=== PATIENT | female | born 1995 | race Two or more races ===

== ENCOUNTER 2024-03-25 13:45 | Emergency (ER) | payer MEDICAID, SELFPAY ==
[2024-03-25 15:20] VITALS: BP 141/87; PULSE 97; RESP 18; TEMP 37.1; O2SAT 96; BMI 36.3
--- NOTE | 2024-03-25 15:38 | XR_ITS ---
Examination: Complete OB ultrasound greater than 14 weeks Date and time of exam: March 25, 2024 1557 hrs. Indications: Pelvic pressure vaginal bleeding yesterday Findings: Viable intrauterine single fetus with single amniotic sac presentation transverse head maternal right Cardiac motion 166 BPM Placenta anterior grade 2 Umbilical cord insertion seen Amniotic fluid largest pocket 5.38 cm Cervix ovaries obscured by bowel gas. Composite estimated gestational age based on BPD, head circumference, abdominal circumference, femur length is 16 weeks 4 days Estimated weight 161.3 g. Survey of intracranial anatomy, spinal anatomy, abdominal anatomy, four-chamber heart performed with no abnormalities identified. Impression: Viable intrauterine gestation transverse presentation No placental abruption or subchorionic hemorrhage.
--- NOTE | 2024-03-25 15:38 | PD.EDRME ---
Rapid Medical Screening Exam RME Arrival date/time: 03/25/24 13:45 This is a 28-year-old female that comes in with complaints of vaginal spotting that started yesterday. Patient states that today she has not had that much vaginal spotting but she is having lower pelvic cramping. Patient reports that she is approximately 16 weeks . Patient is a 2 para 0. Patient's last menstrual period was November 29, 2023. Patient denies nausea, vomiting, diarrhea, fever. Patient denies any past medical history. I have greeted and performed a focused initial assessment of this patient. Initial appropriate labs ordered at this time. A comprehensive ED assessment and evaluation of the patient and analysis of all test and completion of medical decision making process will be conducted by additional ED provider. Chief Complaint: Vaginal Bleeding Time Seen by Provider: 03/25/24 15:24 Vital signs: Vital Signs Temperature 98.7 F 03/25/24 15:20 Pulse Rate 97 03/25/24 15:20 Respiratory Rate 18 03/25/24 15:20 Blood Pressure 141/87 H 03/25/24 15:20 Pulse Oximetry (%) 96 03/25/24 15:20 Oxygen Delivery Method Room Air 03/25/24 15:20
[2024-03-25 16:17] LABS: Collection Type, Urine Voided
[2024-03-25 16:26] LABS: Bilirubin,Urine Negative (Negative); Blood,Urine Negative (Negative); Clarity,Urine Clear (Clear/Hazy); Color,Urine Yellow (Lt Yel-Yel); Culture Indicated,Urine Not Indicated; Glucose, Urine Negative (Negative); Ketones,Urine Negative (Negative); Leukocyte Esterase,Urine Positive (Negative); Nitrite,Urine Negative (Negative); Protein,Urine Trace (Neg - Trace); RBC,Urine 1 /hpf (0-3); Specific Gravity,Urine 1.026 (1.001-1.035); Squamous Epithelial Cell,Urine 8 /hpf (0-5); Urobilinogen,Urine Negative mg/dL (0.0-1.0); WBC,Urine 9 /hpf (0-5)
[2024-03-25 17:08] LABS: Basophils % (Auto) 0 % (0-2.5); Eosinophils # (Auto) 0.1 Thou/mm3 (0.0-0.5); Eosinophils % (Auto) 0 % (0-10); Hematocrit 36.1 % (36.0-46.0); Hemoglobin 12.3 g/dL (12.0-16.0); Immature Granulocytes % (Auto) 0 % (0-0); Immature Granulocytes Auto 0.03 Thou/mm3 (0.00-0.00); Lymphocytes % (Auto) 18 % (10-50); Mean Corpuscular HGB Conc 34.1 g/dl (31.0-37.0); Mean Corpuscular Hemoglobin 30.2 pg (25.0-35.0); Mean Corpuscular Volume 89 fL (80-100); Monocytes # (Auto) 0.6 Thou/mm3 (0.0-0.8); Monocytes % (Auto) 5 % (0-12); Neutrophils # (Auto) 8.8 Thou/mm3 (1.8-7.7); Neutrophils % (Auto) 77 % (37-80); Nucleated Red Blood Cell % 0 /100 WBC (0); Platelet Count 261 Thou/mm3 (140-440); RDW Standard Deviation 41.9 fL (36.4-46.3); Red Blood Count 4.07 Miln/mm3 (4.00-5.20); White Blood Count 11.4 Thou/mm3 (3.6-11.0)
[2024-03-25 17:22] LABS: Alanine Aminotransferase 25 U/L (10-49); Albumin, Serum 4.5 gm/dL (3.5-5.0); Albumin/Globulin Ratio 1.5 (1.2-2.2); Alkaline Phosphatase 55 U/L (46-116); Anion Gap 9 (7-16); Aspartate Amino Transferase 14 U/L (0-34); BUN/Creatinine Ratio 13 Ratio (12-20); Bilirubin,Total 0.3 mg/dL (0.3-1.2); Blood Urea Nitrogen 9 mg/dL (9-23); Calcium 9.4 mg/dL (8.3-10.6); Calcium (Corrected) 9.4 mg/dL (8.5-10.1); Carbon Dioxide 23.3 mMol/L (20.0-31.0); Chloride 103 mMol/L (98-107); Creatinine (Component) 0.7 mg/dL (0.6-1.3); Estimated Creatinine Clearance 137.1 mL/min (>60); Glucose 93 mg/dL (74-106); Lipase 34 U/L (12-53); Osmolality,Calculated 268 (275-295); Potassium 3.7 mMol/L (3.4-5.1); Sodium 135 mMol/L (136-145); Total Protein 7.5 gm/dL (5.7-8.2); eGFR > 60 See Note
[2024-03-25 17:53] LABS: Beta HCG,Quantitative 30820 mIU/mL (<5.0)
[2024-03-25 18:04] VITALS: BP 132/67; PULSE 102; RESP 18; TEMP 37.1; O2SAT 100
--- NOTE | 2024-03-25 18:16 | EDNOTE_ITS ---
ED General RME/HPI General Chief complaint: Vaginal Bleeding Stated complaint: VAGINAL PRESSURE/SPOTTING 16 WEEKS Time Seen by Provider: 03/25/24 15:24 Arrival date/time: 03/25/24 13:45 CC: Small amount of vaginal spotting x 1, patient is a G2, P2 at estimated 16 weeks spotting occurred approximately 24 hours ago. Patient denies any lower back pain but is complaining of some mild pelvic cramping. Patient denies vaginal discharge vaginal bleeding. Also complaining of a mild headache. RME / HPI RME / HPI narrative: 03/25/24 13:45 This is a 28-year-old female that comes in with complaints of vaginal spotting that started yesterday. Patient states that today she has not had that much vaginal spotting but she is having lower pelvic cramping. Patient reports that she is approximately 16 weeks . Patient is a 2 para 0. Patient's last menstrual period was November 29, 2023. Patient denies nausea, vomiting, diarrhea, fever. Patient denies any past medical history. I have greeted and performed a focused initial assessment of this patient. Initial appropriate labs ordered at this time. A comprehensive ED assessment and evaluation of the patient and analysis of all test and completion of medical decision making process will be conducted by additional ED provider. Related Data Allergies Allergy/AdvReac Type Severity Reaction Status Date / Time No Known Allergies Allergy Verified 03/25/24 13:53 Review of Systems Review of Systems Narrative Review of Systems: GEN: No fever, no chills, no weight loss EYES: No discharge, no visual changes, no pain HEENT: No ear pain, no congestion, no sore throat PULM: No shortness of breath, no cough, no congestion CV: No chest pain, no dyspnea on exertion, no palpitations GI: No nausea, no vomiting, no diarrhea, no pain, no constipation : No frequency, no urgency, no dysuria MUSC/SKEL: No joint pain, no back pain SKIN: No rash PSYCH: No hallucinations, no depression HEME/LYMPH: No easy bleeding or bruising tendencies NEURO: No weakness, no headache Past Medical History Social History SMOKING STATUS: Never smoker ED Exam Narrative Physical exam: [General: Obese not in cot no acute distress Head normocephalic HEENT: Within acceptable limits Neck is supple nontender Chest equal chest rise nontender to palpation Respiratory: Clear to auscultation no wheezes crackles or rubs CV: Rate rhythm is regular no murmurs rubs or clicks Abdomen is distended secondary to body habitus soft nontender no masses positive bowel sounds all 4 quadrants Back: No CVA tenderness no spinous process tenderness from cervical spine thoracic and lumbar spine Skin: Intact no petechiae rash induration ulceration or crepitus Extremities: Moving all extremity against resistance cap refill less than 2 seconds neurosensory intact Neuro: Awake alert oriented x3 Glascow coma 15 no focal deficits] Course Quality Measures none Orders Category Date Time Status US OB >= 14 weeks Fetus Stat Exams 03/25/24 15:38 Completed ABO/RH Type - Stat Lab 03/25/24 16:33 Completed Beta HCG,Quantitative Stat Lab 03/25/24 16:33 Completed CBC Stat Lab 03/25/24 16:33 Completed Comprehensive Metabolic Panel Stat Lab 03/25/24 16:33 Completed Lipase Stat Lab 03/25/24 16:33 Completed Urinalysis, C/S if Indicated Stat Lab 03/25/24 15:34 Completed Vital Signs Vital signs: Vital Signs Temperature 98.7 F 03/25/24 15:20 Pulse Rate 97 03/25/24 15:20 Respiratory Rate 18 03/25/24 15:20 Blood Pressure 141/87 H 03/25/24 15:20 Pulse Oximetry (%) 96 03/25/24 15:20 Oxygen Delivery Method Room Air 03/25/24 15:20 MDM Patient data External records reviewed:: [facility] previous records Clinical information provided by:: patient Social determinants that could affect healthcare access:: none Patient has the following chronic illnesses:: None How is presenting disease/condition affected by chronic disease/condition?: u neffected by Evaluation data The following diagnostics were reviewed and interpreted by me:: lab results and radiology exam(s) Lab and/or radiology exams considered but not ordered:: CBC shows no acute leukocytosis anemia thrombocytopenia CMP shows no acute electrolyte imbalances renal impairment transaminitis or T. bili elevation Urine is negative for UTI Ultrasound shows a 16-week 3-day with transverse lie good heart tones Quantitative hCG at 30,820 Interpretation Summary: Vaginal spotting with Medications Medications considered but not ordered:: None Medication administrations:: None Consultations Consultation(s) initiated? (list below): No Diagnosis Differential Diagnosis ED Complaint MDM: Ectopic threatened miscarriage second trimester vaginal bleeding Most likely diagnosis given after review of the tests above:: Second trimester vaginal bleeding Admission Indicated Admission indicated?: not indicated Explain why admission is indicated or not indicated:: Stable for outpatient follow-up Admission Request Was there a request for admission?: No Disposition Plan Disposition Plan: Discharge Discharge Attestation Discharge Attestation: The patient and all family members were given an opportunity to ask questions and understood the discharge instructions. Discharge instructions specifically effects, indications for sooner follow up or return to the emergency department, and the expected course of current diagnosis. Patient condition: Stable Medical Decision Making Differential Diagnosis Differential Diagnosis: Ectopic threatened miscarriage second trimester vaginal bleeding Lab Data 03/25/24 16:33 03/25/24 16:33 Labs: Lab Results 03/25/24 03/25/24 Range/Units 15:34 16:33 WBC 11.4 H (3.6-11.0) Thou/mm3 RBC 4.07 (4.00-5.20) Miln/mm3 Hgb 12.3 (12.0-16.0) g/dL Hct 36.1 (36.0-46.0) % MCV 89 (80-100) fL MCH 30.2 (25.0-35.0) pg MCHC 34.1 (31.0-37.0) g/dl RDW Std Deviation 41.9 (36.4-46.3) fL Plt Count 261 (140-440) Thou/mm3 Neut % (Auto) 77 (37-80) % Lymph % (Auto) 18 (10-50) % Jackson % (Auto) 5 (0-12) % Eos % (Auto) 0 (0-10) % Baso % (Auto) 0 (0-2.5) % Neut # (Auto) 8.8 H (1.8-7.7) Thou/mm3 Lymph # (Auto) 2.0 (1.0-4.8) Thou/mm3 Jackson # (Auto) 0.6 (0.0-0.8) Thou/mm3 Eos # (Auto) 0.1 (0.0-0.5) Thou/mm3 Baso # (Auto) 0.0 (0.0-0.2) Thou/mm3 Immature Gran # (Auto) 0.03 H (0.00-0.00) Thou/mm3 Absolute Nucleated RBC 0.00 (0.00-0.00) Thou/mm3 Immature Gran % 0 (0-0) % Nucleated RBC % 0 (0) /100 WBC Sodium 135 L (136-145) mMol/L Potassium 3.7 (3.4-5.1) mMol/L Chloride 103 (98-107) mMol/L Carbon Dioxide 23.3 (20.0-31.0) mMol/L Anion Gap 9 (7-16) BUN 9 (9-23) mg/dL Creatinine 0.7 (0.6-1.3) mg/dL Estim Creat Clear Calc 137.1 (>60) mL/min eGFR > 60 (60 - ) See Note BUN/Creatinine Ratio 13 (12-20) Ratio Glucose 93 (74-106) mg/dL Calculated Osmolality 268 L (275-295) Calcium 9.4 (8.3-10.6) mg/dL Corrected Calcium 9.4 (8.5-10.1) mg/dL Total Bilirubin 0.3 (0.3-1.2) mg/dL AST 14 (0-34) U/L ALT 25 (10-49) U/L Alkaline Phosphatase 55 (46-116) U/L Total Protein 7.5 (5.7-8.2) gm/dL Albumin 4.5 (3.5-5.0) gm/dL Globulin 3.0 (2.3-3.5) gm/dL Albumin/Globulin Ratio 1.5 (1.2-2.2) Lipase 34 (12-53) U/L Beta HCG, Quant 14562 (<5.0) mIU/mL Ur Collection Type Voided Urine Color Yellow (Lt Yel-Yel) Urine Clarity Clear (Clear/Hazy) Urine pH 6.0 (5.0-7.0) Ur Specific [place] 1.026 (1.001-1.035) Urine Protein Trace (Neg - Trace) Urine Glucose (UA) Negative (Negative) Urine Ketones Negative (Negative) Urine Blood Negative (Negative) Urine Nitrite Negative (Negative) Urine Bilirubin Negative (Negative) Urine Urobilinogen (Auto) Negative (0.0-1.0) mg/dL Ur Leukocyte Esterase Positive (Negative) Urine RBC 1 (0-3) /hpf Urine WBC 9 H (0-5) /hpf Ur Squamous Epith Cells 8 H (0-5) /hpf Urine Bacteria None (None) Ur Culture Indicated? Not Indicated Blood Type A Positive Comment Comment Blood Bank Wristband ID Yes Discharge Plan Plan Patient Disposition: HOME (Self Care) Patient condition on transfer: Stable Prescriptions/Referrals Referrals: Demetrio Hopson MD [Primary Care Provider] - In 1 week Problem List Clinical Impression: Vaginal bleeding during Patient/Caregiver Discharge Instructions Other Activity Instructions:: Follow-up with your MANAGER ORDER as stated on April 11, if there is a worsening heavy bleeding with large clots return the emergency room for reevaluation. Education Materials: Bleeding During Early Print Language: Polish Stand Alone Forms: Justina Award Info., Patient Portal Info Letter, Work/School Release PA/[employer] Supervising Physician PA/[employer] Supervising Physician: Jose Calvillo ENP
== END 2024-03-25 18:25 | disposition home or self-care (01) ==
PROVIDERS: Nurse Practitioner Family; Emergency Provider Emergency Medicine; PCP Family Medicine
DX: O20.9 Hemorrhage in early pregnancy, unspecified (principal); Z3A.16 16 weeks gestation of pregnancy
CPT/HCPCS: 36415; 76805; 80053; 81001; 83690; 84702; 85025; 86900; 86901; 99284

== ENCOUNTER 2024-08-04 08:30 | Outpatient (CLI) | payer MEDICAID, SELFPAY ==
[2024-08-04 08:38] VITALS: BP 137/88; PULSE 91; RESP 18; RESP 99; TEMP 36.8; O2SAT 99; BMI 39.9
[2024-08-04 08:58] VITALS: BP 129/68; PULSE 87
[2024-08-04 09:27] LABS: Collection Type, Urine Clean Catch
[2024-08-04 09:29] VITALS: BP 143/67; PULSE 89
[2024-08-04 09:31] LABS: Basophils % (Auto) 0 % (0-2.5); Eosinophils # (Auto) 0.1 Thou/mm3 (0.0-0.5); Eosinophils % (Auto) 0 % (0-10); Hematocrit 36.2 % (36.0-46.0); Hemoglobin 12.4 g/dL (12.0-16.0); Immature Granulocytes % (Auto) 1 % (0-0); Immature Granulocytes Auto 0.07 Thou/mm3 (0.00-0.00); Lymphocytes # (Auto) 2.3 Thou/mm3 (1.0-4.8); Lymphocytes % (Auto) 18 % (10-50); Mean Corpuscular HGB Conc 34.3 g/dl (31.0-37.0); Mean Corpuscular Volume 85 fL (80-100); Monocytes # (Auto) 0.6 Thou/mm3 (0.0-0.8); Monocytes % (Auto) 5 % (0-12); Neutrophils # (Auto) 9.3 Thou/mm3 (1.8-7.7); Neutrophils % (Auto) 75 % (37-80); Nucleated Red Blood Cell % 0 /100 WBC (0); Platelet Count 246 Thou/mm3 (140-440); Red Blood Count 4.27 Miln/mm3 (4.00-5.20); White Blood Count 12.3 Thou/mm3 (3.6-11.0)
[2024-08-04 09:39] VITALS: BP 144/71; PULSE 90
[2024-08-04 09:47] LABS: Alanine Aminotransferase 15 U/L (10-49); Albumin, Serum 3.9 gm/dL (3.5-5.0); Albumin/Globulin Ratio 1.3 (1.2-2.2); Alkaline Phosphatase 154 U/L (46-116); Anion Gap 11 (7-16); Aspartate Amino Transferase 15 U/L (0-34); BUN/Creatinine Ratio 14 Ratio (12-20); Bilirubin,Total 0.3 mg/dL (0.3-1.2); Blood Urea Nitrogen 10 mg/dL (9-23); Calcium 8.8 mg/dL (8.3-10.6); Calcium (Corrected) 8.9 mg/dL (8.5-10.1); Carbon Dioxide 22.3 mMol/L (20.0-31.0); Chloride 106 mMol/L (98-107); Creatinine (Component) 0.7 mg/dL (0.6-1.3); Estimated Creatinine Clearance 153.3 mL/min (>60); Glucose 103 mg/dL (74-106); LDH (Lactate Dehydrogenase) 158 U/L (120-246); Osmolality,Calculated 276 (275-295); Potassium 4.2 mMol/L (3.4-5.1); Sodium 139 mMol/L (136-145); Total Protein 6.9 gm/dL (5.7-8.2); Uric Acid 5.5 mg/dL (3.1-7.8); eGFR > 60 See Note
[2024-08-04 09:50] LABS: Bilirubin,Urine Negative (Negative); Blood,Urine Negative (Negative); Clarity,Urine Turbid (Clear/Hazy); Color,Urine Lt-Yellow (Lt Yel-Yel); Glucose, Urine Negative (Negative); Ketones,Urine Negative (Negative); Leukocyte Esterase,Urine Positive (Negative); Nitrite,Urine Negative (Negative); Protein,Urine Negative (Neg - Trace); RBC,Urine 1 /hpf (0-3); Specific Gravity,Urine 1.007 (1.001-1.035); Squamous Epithelial Cell,Urine 10 /hpf (0-5); Urobilinogen,Urine Negative mg/dL (0.0-1.0); WBC,Urine 13 /hpf (0-5)
[2024-08-04 09:57] VITALS: BP 133/77; PULSE 83
[2024-08-04 09:57] LABS: Fibrinogen 547 mg/dL (175-375); INR 0.9 (0.9-1.3); Partial Thromboplastin Time 24.8 Seconds (22.0-36.0); Prothrombin Time 9.7 Seconds (9.0-12.2)
--- NOTE | 2024-08-04 11:53 | PC.NURSE ---
Approx 1025 call made to Md Belle with SBAR Report. PT denies WYNN, Nausea/v, Visual distrubances or epigastric pain. Serial B/p readings read back to MD. Also all labs read back to MD. Per Md, give pt a 24 hour collection and return to triage for NST.
--- NOTE | 2024-08-04 11:54 | PC.NURSE ---
1040- pt discharged home with 24 hour collections supplies provided. Antepartum education and kick counts information answered. pt verbalized understanding of this. Will return tomorrow at 0900 with 24 hour collection. Home ambulatory in stable condition.
== END 2024-08-04 10:40 | disposition home or self-care (01) ==
LOC: S4S1 08:34 → S4SX 09:49
PROVIDERS: Referring Provider Student in an Organized Health Care Education/Training Program; Visit Provider Student in an Organized Health Care Education/Training Program
DX: Z34.83 Encounter for supervision of other normal pregnancy, third trimester (principal); Z36.89 Encounter for other specified antenatal screening; Z3A.35 35 weeks gestation of pregnancy
CPT/HCPCS: 36415; 59025; 80053; 81001; 83615; 84550; 85025; 85384; 85610; 85730

== ENCOUNTER 2024-08-05 09:47 | Outpatient (CLI) | payer MEDICAID, SELFPAY ==
[2024-08-05] VITALS (14 sets, daily range): BP systolic 128–145; BP diastolic 65–86; PULSE 78–96; RESP 18–99; TEMP 36.6; O2SAT 98–100; BMI 41.1
[2024-08-05 10:59] LABS: Creatinine,Urine 88 mg/dL (30-125); Patient Height,Urine 65 Inches; Patient Weight,Urine 247 Pounds; Protein Total, Urine 11 mg/dL (1-14)
[2024-08-05 11:23] LABS: Creatinine (Component) 0.6 mg/dL (0.6-1.3); Estimated Creatinine Clearance 175.7 mL/min (>60); eGFR > 60 See Note
[2024-08-05 11:34] LABS: Protein Total, 24 hr Urine 138 mg/24hr (<149); Protein Total, Urine Volume 1250 mL/24hr (600-1800)
[2024-08-05 11:35] LABS: Collection Time,Urine 24 Hours; Creatinine 24 Hour,Urine 1.1 gm/24hr (0.6-1.5); Total Volume,Urine 1250 mL (600-1800)
[2024-08-05 11:54] LABS: Creatinine Clearance Urine 102 mL/min (90-139); Serum Creatinine Result 0.6 mg/dL
== END 2024-08-05 12:15 | disposition home or self-care (01) ==
LOC: S4S1 09:48 → S4SX 09:49
PROVIDERS: Referring Provider Obstetrics & Gynecology; Visit Provider Obstetrics & Gynecology
DX: Z34.03 Encounter for supervision of normal first pregnancy, third trimester (principal); Z36.89 Encounter for other specified antenatal screening; Z3A.35 35 weeks gestation of pregnancy
CPT/HCPCS: 36415; 59025; 82565; 82575; 84156

== ENCOUNTER 2024-08-09 11:19 | Outpatient (RCR) | payer MEDICAID, SELFPAY ==
--- NOTE | 2024-07-12 15:12 | XR_ITS ---
Examination: Biophysical profile, ultrasound Date and time of exam: July 12, 2024 1529 hrs. Indications: Diagnosis maternal obesity Technique: Multiple transabdominal sonographic images of the pelvis abdomen obtained. Attention is directed to the breathing movement, gross body movement, amniotic fluid volume and tone. Findings: Amniotic fluid index 10.3 cm Total biophysical profile is 8 of 8. breathing movement is 2. Gross body movement is 2. tone is 2. Qualitative amniotic fluid volume is 2 Impression: Biophysical profile is 8 of 8.
[2024-07-12 15:53] VITALS: BP 130/72; PULSE 93; RESP 16; TEMP 36.1
--- NOTE | 2024-07-16 15:39 | XR_ITS ---
Examination: Biophysical profile, ultrasound Date and time of exam: July 16, 2024 1542 hours INDICATIONS: Diagnosis maternal obesity Technique: Multiple transabdominal sonographic images of the pelvis abdomen obtained. Attention is directed to the breathing movement, gross body movement, amniotic fluid volume and tone. Findings: Amniotic fluid index 10.0 cm Total biophysical profile is 8 of 8. breathing movement is 2. Gross body movement is 2. tone is 2. Qualitative amniotic fluid volume is 2 Impression: Biophysical profile is 8 of 8.
[2024-07-16 16:18] VITALS: BP 122/67; PULSE 79; RESP 16; TEMP 36.3
--- NOTE | 2024-07-19 14:57 | XR_ITS ---
Examination: Biophysical profile, ultrasound Date and time of exam: July 19, 2024 1503 hours INDICATIONS: Diagnosis maternal obesity Technique: Multiple transabdominal sonographic images of the pelvis abdomen obtained. Attention is directed to the breathing movement, gross body movement, amniotic fluid volume and tone. Findings: Amniotic fluid index 6.5 cm Total biophysical profile is 8 of 8. breathing movement is 2. Gross body movement is 2. tone is 2. Qualitative amniotic fluid volume is 2 Impression: Biophysical profile is 8 of 8.
[2024-07-19 15:56] VITALS: BP 123/75; PULSE 76; RESP 16; TEMP 36.8
--- NOTE | 2024-07-23 10:14 | XR_ITS ---
Examination: Biophysical profile, ultrasound Date and time of exam: July 23, 2024 1032 hours INDICATIONS: Diagnosis maternal obesity Technique: Multiple transabdominal sonographic images of the pelvis abdomen obtained. Attention is directed to the breathing movement, gross body movement, amniotic fluid volume and tone. Findings: Amniotic fluid index 6.5 cm Total biophysical profile is 8 of 8. breathing movement is 2. Gross body movement is 2. tone is 2. Qualitative amniotic fluid volume is 2 Impression: Biophysical profile is 8 of 8.
[2024-07-23 11:38] VITALS: BP 135/67; PULSE 76; RESP 16; TEMP 36.7
--- NOTE | 2024-07-26 15:14 | XR_ITS ---
Examination: Biophysical profile, ultrasound Date and time of exam: July 26, 2024 1528 hrs. Indications: Diagnosis maternal obesity Technique: Multiple transabdominal sonographic images of the pelvis abdomen obtained. Attention is directed to the breathing movement, gross body movement, amniotic fluid volume and tone. Findings: Amniotic fluid index 6.4 cm Total biophysical profile is 8 of 8. breathing movement is 2. Gross body movement is 2. tone is 2. Qualitative amniotic fluid volume is 2 Impression: Biophysical profile is 8 of 8.
[2024-07-26 16:22] VITALS: BP 119/79; PULSE 79; RESP 20; TEMP 36.7
--- NOTE | 2024-07-30 15:13 | XR_ITS ---
Examination: Biophysical profile, ultrasound Date and time of exam: July 22, 2024 1520 hours INDICATIONS: Maternal obesity complicating Technique: Multiple transabdominal sonographic images of the pelvis abdomen obtained. Attention is directed to the breathing movement, gross body movement, amniotic fluid volume and tone. Findings: Amniotic fluid index 8.7 cm Total biophysical profile is 8 of 8. breathing movement is 2. Gross body movement is 2. tone is 2. Qualitative amniotic fluid volume is 2 Impression: Biophysical profile is 8 of 8.
[2024-07-30 16:15] VITALS: BP 123/69; PULSE 81; RESP 16; TEMP 36.8
--- NOTE | 2024-08-06 15:17 | XR_ITS ---
Examination: Biophysical profile, ultrasound Date and time of exam: August 06, 2024 1519 hours INDICATIONS: Maternal obesity complicating Technique: Multiple transabdominal sonographic images of the pelvis abdomen obtained. Attention is directed to the breathing movement, gross body movement, amniotic fluid volume and tone. Findings: Amniotic fluid index 11.1 cm Total biophysical profile is 8 of 8. breathing movement is 2. Gross body movement is 2. tone is 2. Qualitative amniotic fluid volume is 2 Impression: Biophysical profile is 8 of 8.
[2024-08-06 16:21] VITALS: BP 133/74; PULSE 83; RESP 16; TEMP 36.7
--- NOTE | 2024-08-09 11:25 | XR_ITS ---
Examination: Biophysical profile, ultrasound Date and time of exam: August 09, 2024 1143 hours INDICATIONS: Diagnosis obesity complicating Technique: Multiple transabdominal sonographic images of the pelvis abdomen obtained. Attention is directed to the breathing movement, gross body movement, amniotic fluid volume and tone. Findings: Amniotic fluid index 9.5 cm Total biophysical profile is 8 of 8. breathing movement is 2. Gross body movement is 2. tone is 2. Qualitative amniotic fluid volume is 2 Impression: Biophysical profile is 8 of 8.
[2024-08-09 12:01] VITALS: BP 127/71; PULSE 88; RESP 16; TEMP 36.7
== END 2024-08-09 23:59 | disposition home or self-care (01) ==
LOC: S4S1 11:19
PROVIDERS: Referring Provider Student in an Organized Health Care Education/Training Program; Visit Provider Student in an Organized Health Care Education/Training Program
DX: O99.213 Obesity complicating pregnancy, third trimester (principal); E66.9 Obesity, unspecified; Z3A.36 36 weeks gestation of pregnancy
CPT/HCPCS: 59025; 76819

== ENCOUNTER 2024-08-14 05:07 | Inpatient (IN) | payer MEDICAID, SELFPAY ==
[2024-08-04 08:45] VITALS: BP 137/88; PULSE 91; RESP 18; RESP 99; TEMP 36.8; BMI 39.9
[2024-08-14] VITALS (17 sets, daily range): BP systolic 0–145; BP diastolic 0–86; PULSE 85–118; RESP 12–20; TEMP 36.5–37.1; O2SAT 97–100; BMI 40.9; BMI 41.0
--- NOTE | 2024-08-14 05:16 | XR_ITS ---
Examination: age limited TECHNIQUE: Limited transabdominal sonographic images pelvis Examination and August 14, 2024 0551 hours INDICATIONS: Pre-op , unknown presentation. FINDINGS: presentation breech IMPRESSION: presentation breech
[2024-08-14] MEDS: RINGERS LACTATED 1000 ML 1,000 ML 100 ML IV (05:20)
[2024-08-14 06:05] LABS: Basophils # (Auto) 0.1 Thou/mm3 (0.0-0.2); Basophils % (Auto) 0 % (0-2.5); Eosinophils # (Auto) 0.1 Thou/mm3 (0.0-0.5); Eosinophils % (Auto) 1 % (0-10); Hematocrit 37.2 % (36.0-46.0); Hemoglobin 12.8 g/dL (12.0-16.0); Immature Granulocytes % (Auto) 0 % (0-0); Immature Granulocytes Auto 0.03 Thou/mm3 (0.00-0.00); Lymphocytes # (Auto) 3.1 Thou/mm3 (1.0-4.8); Lymphocytes % (Auto) 26 % (10-50); Mean Corpuscular HGB Conc 34.4 g/dl (31.0-37.0); Mean Corpuscular Hemoglobin 29.2 pg (25.0-35.0); Mean Corpuscular Volume 85 fL (80-100); Monocytes # (Auto) 0.7 Thou/mm3 (0.0-0.8); Monocytes % (Auto) 6 % (0-12); Neutrophils % (Auto) 67 % (37-80); Nucleated Red Blood Cell % 0 /100 WBC (0); Platelet Count 249 Thou/mm3 (140-440); RDW Standard Deviation 43.5 fL (36.4-46.3); Red Blood Count 4.39 Miln/mm3 (4.00-5.20)
[2024-08-14 06:40] LABS: Alanine Aminotransferase 16 U/L (10-49); Albumin, Serum 3.9 gm/dL (3.5-5.0); Albumin/Globulin Ratio 1.3 (1.2-2.2); Alkaline Phosphatase 166 U/L (46-116); Anion Gap 13 (7-16); Aspartate Amino Transferase 18 U/L (0-34); BUN/Creatinine Ratio 16 Ratio (12-20); Bilirubin,Total 0.3 mg/dL (0.3-1.2); Blood Urea Nitrogen 11 mg/dL (9-23); Calcium 8.6 mg/dL (8.3-10.6); Calcium (Corrected) 8.7 mg/dL (8.5-10.1); Carbon Dioxide 21.4 mMol/L (20.0-31.0); Chloride 105 mMol/L (98-107); Creatinine (Component) 0.7 mg/dL (0.6-1.3); Estimated Creatinine Clearance 150.4 mL/min (>60); Globulin 2.9 gm/dL (2.3-3.5); Glucose 100 mg/dL (74-106); Osmolality,Calculated 276 (275-295); Potassium 3.6 mMol/L (3.4-5.1); Sodium 139 mMol/L (136-145); Total Protein 6.8 gm/dL (5.7-8.2); Uric Acid 6.1 mg/dL (3.1-7.8); eGFR > 60 See Note
[2024-08-14 06:48] LABS: Syphilis Nonreactive (Nonreactive)
[2024-08-14] MEDS: ceFAZolin/D5W 2 GM IV 2 GM/100 ML BAG IV (07:15)
[2024-08-14] MEDS: METOCLOPRAMIDE INJ 5 MG/ML VIAL 2 ML 10 MG IVP (07:15)
[2024-08-14] MEDS: FAMOTIDINE INJ 10 MG/ML VIAL 2 ML 20 MG IV (07:15)
--- NOTE | 2024-08-14 07:44 | PD.LDHP ---
Documentation for date of: 08/14/24 OB Labor/Induct. HPI History of Present Illness : 2 Para: 0 Term pregnancies: 0 pregnancies: 0 Living children: 0 History of Abortions: Spontaneous and Elective: 0 History of Vaginal deliveries: 0 History of sections: No (0) History of : No (0) Date of last menstrual period: 09/29/23 AMAYA: 09/04/24 Gestational Age (weeks): 37 Gestational age based on last menstrual period: 47 History of present illness: 29-year-old 2 para 0 with previous spontaneous miscarriage is admitted for a primary low-transverse for persistent breech presentation and gestational hypertension at 37 weeks. Patient is dated by 12-week scan. Patient's has otherwise been uncomplicated however over the last few visits in the clinic patient has been having elevated blood pressures. Patient was sent to the triage for preeclampsia evaluation on 08/04 and 08/05 and was found to have elevated blood pressures preeclampsia labs has been within normal limits and patient has been asymptomatic for any severe preeclampsia symptoms. Patient was given the choice of version however patient absolutely declined as one of her family members had bad experience with the procedure History of Present Dating criteria: LMP confirmed by 1st trimester US Adequate Care: Yes Abnormal ultrasound findings: Nuchal translucency within normal limits Anatomy within normal limits Obstetrical complications: gestational hypertension Labs Labs: Positive: Rubella Titre and Group Beta Strep, Negative: RPR, Hepatitis B, HIV, Chlamydia and Gonorrhea and Unknown: Herpes Type 1, Herpes Type 2 and Covid-19 Past Medical History Surgical History SURGICAL: Negative Section (0) Meds Home Medications and Allergies Home Medications ?Medication ?Instructions ?Recorded ?Confirmed ?Type PNV#14-iron fum-FA#[id number]-oboffrbw 1 cap PO QDAY 08/04/24 08/14/24 History 27 mg iron-1 mg-300 mg-50 mg capsule asprin 81 mg PO 1XD 08/04/24 08/14/24 History Allergies Allergy/AdvReac Type Severity Reaction Status Date / Time No Known Allergies Allergy Verified 08/14/24 06:10 OB Exam Physical Exam Vital signs: Temp Pulse Resp BP Pulse Ox 98.3 F 115 H 18 136/79 H 98 08/14/24 05:30 08/14/24 05:25 08/14/24 05:30 08/14/24 05:25 08/14/24 05:25 Constitutional Constitutional: no acute distress Routine HEENT Exam Head: Present normocephalic and atraumatic Eye: Present EOMI and PERRL ENT: Present mucous membranes moist Routine Neck Exam Neck: Present supple and trachea midline Routine Cardiovascular Exam Cardiovascular: Present RRR Routine Abdominal Exam Abdominal: Present soft and normoactive bowel sounds Detailed Labor and Delivery Exam Dilation (cm): Closed Comments: heart rate category 1 Routine Extremities Exam Extremities: Present full ROM Routine Skin Exam Skin: Present intact, dry and warm Routine Neurological Exam Neurological: Present alert, oriented X3 and CN II-XII intact Routine Psychiatric Exam Psychiatric: Present normal affect and normal thought process OB Results Labs 08/14/24 05:40 08/14/24 05:40 Labs: Short CBC 08/14/24 Range/Units 05:40 WBC 12.0 H (3.6-11.0) Thou/mm3 Hgb 12.8 (12.0-16.0) g/dL Hct 37.2 (36.0-46.0) % Plt Count 249 (140-440) Thou/mm3 BMP 08/14/24 05:40 Sodium 139 Potassium 3.6 Chloride 105 Carbon Dioxide 21.4 BUN 11 Creatinine 0.7 Glucose 100 Calcium 8.6 Liver Function 08/14/24 Range/Units 05:40 Total Bilirubin 0.3 (0.3-1.2) mg/dL AST 18 (0-34) U/L ALT 16 (10-49) U/L Alkaline Phosphatase 166 H (46-116) U/L Albumin 3.9 (3.5-5.0) gm/dL Impressions Impression: 29-year-old G2, P0 at 37 weeks admitted for primary low-transverse for breech presentation and gestational hypertension Preeclampsia labs within normal limits Blood pressure today has been under 140 systolic Hemoglobin 12.8 Patient was given the choice of version, patient declined OB Assessment & Plan Additional Plan Additional Plan Comment: DVT prophylaxis Antibiotic prophylaxis
[2024-08-14 08:36] LABS: Collection Type, Urine Clean Catch
[2024-08-14 09:03] LABS: Bacteria,Urine Rare; Bilirubin,Urine Negative (Negative); Blood,Urine Negative (Negative); Clarity,Urine Clear (Clear/Hazy); Color,Urine Colorless (Lt Yel-Yel); Glucose, Urine Negative (Negative); Ketones,Urine Negative (Negative); Leukocyte Esterase,Urine Positive (Negative); Nitrite,Urine Negative (Negative); PH,Urine 6.5 (5.0-7.0); Protein,Urine Negative (Neg - Trace); RBC,Urine < 1 /hpf (0-3); Specific Gravity,Urine 1.007 (1.001-1.035); Squamous Epithelial Cell,Urine 1 /hpf (0-5); Urobilinogen,Urine Negative mg/dL (0.0-1.0); WBC,Urine 1 /hpf (0-5)
[2024-08-14] MEDS: OXYTOCIN in NS 20 units 20 UNIT/1,000 ML BAG 125 UNIT IV ×2 (09:11→17:58)
[2024-08-14] MEDS: KETOROLAC INJ 30 MG/ML VIAL IVP ×2 (10:44→19:16)
[2024-08-14 11:13] LABS: Fibrinogen 383 mg/dL (175-375); INR 0.9 (0.9-1.3); Partial Thromboplastin Time 25.5 Seconds (22.0-36.0); Prothrombin Time 10.1 Seconds (9.0-12.2)
--- NOTE | 2024-08-14 12:06 | OBDSUM_ITS ---
Data (Luna) Data Hx Section: No (0) : 2 Term: 0 : 0 Livin Abortions: Spontaneous & Theraputic: 0 Delivery Data (Luna) Labor Data ROM date: 08/14/24 ROM time: 08:06 Amniotic membrane rupture type: Artificial Amniotic fluid description: Clear Delivery Data delivery date: 08/14/24 delivery time: 08:08 Gestational age (weeks): 37 Placenta delivery date: 08/14/24 Delivered by: Betty Belle Delivery nurse: Sebas Puckett RN [place] nurse: Shanell Delgado RN Support person(s) at delivery: FOB Delivery Method Delivery method: Low Transverse Presentation: Breech Anesthesia Type Anesthesia Type: Spinal Placenta Placenta delivery description: Spontaneous Cord blood sent to lab: Yes cord blood collection: Cord Blood Type EBL Estimated blood loss (ml): 400 Umbilical Cord cord description: 3 Vessels Data (Luna) Data [place]'s gender: Female weight (gms): 2210 g Weight (pounds): 4 lbs and 14.0 ozs [place] length: 17 cm 1 minute: 8 5 minutes: 9
--- NOTE | 2024-08-14 12:08 | ESOP_ITS ---
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 Identity was confirmed by double identifiers and she was placed on the operating table.The abdomen and perineum were prepped in the usual sterile fashion and a Mahajan catheter was placed to continuous drainage.? Sterile drapes were applied.??A Pfannenstiel skin incision was made with a scalpel and carried to the subcutaneous fat up to the rectus fascia.? The rectus fascia was incised on either side of the midline and the incisions were extended bilaterally.? The fascia was gently dissected off the ventral surface of the rectus muscle both superiorly and inferiorly. Carefully a peritioneal window created after making sure there are no adhesions, hysterotomy incision made and extended bluntly with finger. Rupture of membranes revealed clear fluid. The baby was found breech presentation and was delivered via breech extraction. seen the umbilical cord , was doubly clamped, divided and the infant was handed over to the waiting team. The placenta delivered by controlled cord traction . The interior of the uterus was now thorougly cleaned of all blood and debris and membranes.?The? hysterotomy was closed using 0 vicryl suture in double layers. Once the repair was completed the hysterotomy was inspected, was noted to be adequately hemostatic. Then the rectus fascia was repaired using Vicryl 0 in a running fashion.? The subcutaneous layer was now, approximated with 3-0 vicryl in double layers.? All bleeding points were cauterized using the Bovie.?The skin was closed using 4-0 Monocryl in a subcuticular fashion.? The skin was cleaned and a sterile dressing was applied. The patient was now undraped, the abdomen and back were thoroughly cleaned and she was now transferred to the recovery room in a stable Estimated blood loss (ml): 400 Surgical staff Operation Date: 08/14/24 07:45 Case Staff CRM MARKETING EXECUTIVE: Storm Resendiz RN First Assistant: Elliot Gomez Diagnosis Problem List Completed Was Problem List Reviewed/Reconciled?: Yes
[2024-08-14 13:58] LABS: Basophils % (Auto) 0 % (0-2.5); Eosinophils % (Auto) 0 % (0-10); Hematocrit 28.2 % (36.0-46.0); Hemoglobin 9.8 g/dL (12.0-16.0); Immature Granulocytes % (Auto) 0 % (0-0); Immature Granulocytes Auto 0.06 Thou/mm3 (0.00-0.00); Lymphocytes # (Auto) 2.7 Thou/mm3 (1.0-4.8); Lymphocytes % (Auto) 17 % (10-50); Mean Corpuscular HGB Conc 34.8 g/dl (31.0-37.0); Mean Corpuscular Hemoglobin 29.4 pg (25.0-35.0); Mean Corpuscular Volume 85 fL (80-100); Monocytes # (Auto) 0.7 Thou/mm3 (0.0-0.8); Monocytes % (Auto) 5 % (0-12); Neutrophils # (Auto) 12.2 Thou/mm3 (1.8-7.7); Neutrophils % (Auto) 78 % (37-80); Nucleated Red Blood Cell % 0 /100 WBC (0); Platelet Count 207 Thou/mm3 (140-440); RDW Standard Deviation 42.9 fL (36.4-46.3); Red Blood Count 3.33 Miln/mm3 (4.00-5.20); White Blood Count 15.8 Thou/mm3 (3.6-11.0)
[2024-08-15] MEDS: KETOROLAC INJ 30 MG/ML VIAL IVP (01:36)
[2024-08-15 03:45] VITALS: BP 110/69; PULSE 87; RESP 16; TEMP 36.8; O2SAT 96
[2024-08-15 08:15] VITALS: BP 122/83; PULSE 94; RESP 16; TEMP 36.6; O2SAT 98
[2024-08-15] MEDS: IBUPROFEN TAB 400 MG TABLET 800 MG PO (10:00)
--- NOTE | 2024-08-15 11:32 | ESPR_ITS ---
Subjective Subjective Interval history: Patient is seen at the bedside denies any nausea vomiting, fever, vaginal bleeding. Patient has been ambulating, patient has not passed gas yet Exam Vital Signs Temp Pulse Resp BP Pulse Ox O2 Del Method 97.9 F 94 16 122/83 98 Room Air 08/15/24 08:15 08/15/24 08:15 08/15/24 08:15 08/15/24 08:15 08/15/24 08:15 08/15/24 08:15 Objective Labs 08/14/24 13:40 08/14/24 05:40 Labs: Laboratory Results - last 24 hr 08/14/24 13:40 WBC 15.8 H RBC 3.33 L Hgb 9.8 L D Hct 28.2 L MCV 85 MCH 29.4 MCHC 34.8 RDW Std Deviation 42.9 Plt Count 207 D Neut % (Auto) 78 Lymph % (Auto) 17 Hancock % (Auto) 5 Eos % (Auto) 0 Baso % (Auto) 0 Neut # (Auto) 12.2 H Lymph # (Auto) 2.7 [place]ancock # (Auto) 0.7 Eos # (Auto) 0.0 Baso # (Auto) 0.0 Immature Gran # (Auto) 0.06 H Absolute Nucleated RBC 0.00 Immature Gran % 0 Nucleated RBC % 0 Assessment & Plan Assessment Comment Assessment comment: 29-year-old para 1 status post primary low-transverse for gestational hypertension and breech presentation Postop day 1, meeting all postop milestones Vital signs stable Hemoglobin appropriate drop to 9.8 Blood pressures have been under control without any antihypertensive Plan Comment Plan Comment: Continue postop care Anticipate discharge tomorrow Time Spent With Patient Time: Total time spent is greater than 50% in coordination of care (as documented) at patient's floor/unit and/or counseling patient:
[2024-08-15 16:15] VITALS: BP 137/83; PULSE 97; RESP 17; TEMP 36.7; O2SAT 99
[2024-08-15] MEDS: SIMETHICONE 80 MG CHEW PO (17:03)
[2024-08-15] MEDS: DOCUSATE SOD 100 MG CAPSULE PO (17:03)
[2024-08-15] MEDS: HYDROcodone/APAP 5/325 TABLET 1 TAB PO ×2 (17:04→21:34)
[2024-08-15 20:08] VITALS: BP 127/81; PULSE 90; RESP 18; TEMP 36.7; O2SAT 98
[2024-08-16] MEDS: IBUPROFEN TAB 400 MG TABLET 800 MG PO ×2 (02:14→11:33)
[2024-08-16 04:09] VITALS: BP 133/79; PULSE 89; RESP 19; TEMP 36.6; O2SAT 98
[2024-08-16] MEDS: HYDROcodone/APAP 5/325 TABLET 1 TAB PO (07:14)
[2024-08-16 08:00] VITALS: BP 135/80; PULSE 98; RESP 19; TEMP 36.6; O2SAT 98
--- NOTE | 2024-08-16 08:55 | PD.LDPPPRG ---
Subjective Subjective Interval history: Patient denies any prior complaints Exam Vital Signs Temp Pulse Resp BP Pulse Ox O2 Del Method 97.8 F 89 19 133/79 H 98 Room Air 08/16/24 04:09 08/16/24 04:09 08/16/24 04:09 08/16/24 04:09 08/16/24 04:09 08/16/24 04:09 Routine Abdominal Exam Comments: Incision clear and intact Routine Extremities Exam Comments: Nontender Objective Labs 08/14/24 13:40 08/14/24 05:40 Assessment & Plan Assessment Comment Assessment comment: Postop day #2 status post delivery Discharge home discharge instructions given follow-up in the office in 1 week Time Spent With Patient Time: Total time spent is greater than 50% in coordination of care (as documented) at patient's floor/unit and/or counseling patient:
--- NOTE | 2024-08-16 09:07 | PD.LDDS ---
DS: Providers Provider Date of admission: 08/14/24 05:07 Primary care physician: Demetrio Hopson MD Admitting Provider: Betty Belle MD Attending Provider on Admission: Dylan Vernon MD Consults: 08/14/24 07:49 Referral Routine Comment: Attending Provider on DC: Dylan Vernon MD Discharging Provider: Dylan Vernon MD DS: Diagnosis Problem List Completed Was Problem List Reviewed/Reconciled?: Yes Summary/Hosp Course Brief History: 29-year-old 2 para 0 with previous spontaneous miscarriage is admitted for a primary low-transverse for persistent breech presentation and gestational hypertension at 37 weeks. Patient is dated by 12-week scan. Patient's has otherwise been uncomplicated however over the last few visits in the clinic patient has been having elevated blood pressures. Patient was sent to the triage for preeclampsia evaluation on 08/04 and 08/05 and was found to have elevated blood pressures preeclampsia labs has been within normal limits and patient has been asymptomatic for any severe preeclampsia symptoms. Patient was given the choice of version however patient absolutely declined as one of her family members had bad experience with the procedure Peripartum Data Delivery Method: Low Transverse Episiotomy Description: None Procedures: Procedures Operation Date: 08/14/24 07:45 Actual Procedure Side Surgeon p in OB Betty Belle MD Time Spent with Patient Time attestation: Total time spent providing and/or coordinating discharge services: Exam Vital Signs Temp Pulse Resp BP Pulse Ox O2 Del Method 97.9 F 98 19 135/80 H 98 Room Air 08/16/24 08:00 08/16/24 08:00 08/16/24 08:00 08/16/24 08:00 08/16/24 08:00 08/16/24 08:00 Discharge Plan Plan Patient Disposition: HOME (Self Care) Patient condition on transfer: Stable Prescriptions/Referrals Prescriptions/Med Rec: New hydrocodone-acetaminophen 5-325 mg tablet 1 tab PO Q6H MDD 4 PRN (Reason: pain) Qty: 20 0RF Continued PNV #[id number] 27 mg iron-1 mg -300 mg-50 mg capsule 1 cap PO QDAY Discontinued asprin tablet 81 mg PO 1XD Referrals: Demetrio Hopson MD [Primary Care Provider] - Patient/Caregiver Discharge Instructions Discharge Activity: activity as tolerated Other Discharge Activity Instructions:: Follow up office 1 weeks. Education Materials: C Section Dc Print Language: Turkmen Stand Alone Forms: Justina Award Info., Patient Portal Info Letter Discharge Order Discharge Orders: Discharge (Routine); Ordered 08/16/24 Ordered By: Dylan Vernon Planned Discharge Date 08/16/24
[2024-08-16] MEDS: SIMETHICONE 80 MG CHEW PO (11:14)
[2024-08-16] MEDS: DOCUSATE SOD 100 MG CAPSULE PO (11:14)
--- NOTE | 2024-08-16 11:50 | PC.LAC ---
mom states breast feeding is going better, baby is waking and doing better job at the breast. she is feeling more tender and sore on her nipples, issued lanolin and explained how to use it. mom understood. she is also still occasionally pumping to ensure milk supply and for stimulation.
--- NOTE | 2024-08-16 13:00 | PC.SS ---
HALL WORKER conducted bedside contact with the patient to address nursing referral indicating patient scored 12 on post-depression screening.? HALL WORKER introduced self and role.? At bedside with patient was DAVY, Elliot [place].? Patient gave permission for FOB to be present during discussion.? Patient stated not possessing a history of mental health.? Patient denies current possession of depression.? FOB voiced no concerns with patient?s emotional status.? Patient relayed to HALL WORKER that she is excited about of daughter, Massiel.? is the patient?s first child.? delivered via .? Patient plans on the .? Patient is aligned with WIC and SNAP.? Patient is not receiving TANF.? Patient denies history of alcohol/drug use.? Patient denies episodes of domestic violence.? OB services provided by Dr. Belle.? Patient reports consistency with appointments.? Patient has access to appropriate supplies and equipment.? FOB will provide transportation upon discharge.? Patient describes possessing support system consisting of spouse and extended family.? No further intervention required at this time, social worker palliative care will be available to address any further concerns.? HALL WORKER updated bedside nurse.?
== END 2024-08-16 14:35 | disposition home or self-care (01) | DRG 540 ==
LOC: S4SX 07:14 → S4NX 07:43
PROVIDERS: Admitting Provider Student in an Organized Health Care Education/Training Program; PCP Family Medicine; Visit Provider Specialist
PROC: 10D00Z1 Extraction of Products of Conception, Low, Open Approach (ICD-10-PCS; CPT 59514; principal; 2024-08-14 07:30)
DX: O32.1XX0 Maternal care for breech presentation, not applicable or unspecified (principal); O13.4 Gestational [pregnancy-induced] hypertension without significant proteinuria, complicating childbirth; O36.5930 Maternal care for other known or suspected poor fetal growth, third trimester, not applicable or unspecified; Z3A.37 37 weeks gestation of pregnancy; Z37.0 Single live birth
CPT/HCPCS: 36415; 59025; 76815; 80053; 81001; 84550; 85025; 85384; 85610; 85730; 86780; 86850; 86900; 86901; A4649; J0689; J1885; J2250; J2274; J2371; J2590; J2704; J2765; J3010; J3490; J7120; A9270; J2270